=== PATIENT | male | born 1970 | race Caucasian/White ===

== ENCOUNTER 2016-09-19 22:52 | Emergency (ER) | payer MEDICAID, MEDICARE ==
[2016-09-19] MEDS ORDERED: HYDROmorphone* 2 MG/ML 1 ML SYR ONE ×2 (23:01→23:26)
[2016-09-19] MEDS ORDERED: NS 0.9% 1000 ML* 1,000 ML IV ONE (23:08)
[2016-09-19] MEDS ORDERED: Ondansetron INJ* 2 MG/ML VIAL IV ONE (23:08)
[2016-09-19] MEDS ORDERED: HYDROmorphone* 2 MG/ML 1 ML SYR IV ONE (23:08)
[2016-09-19] MEDS ORDERED: Tetan/Diph/Pertus SYR(Tdap)* 0.5 ML SYR(BOOSTRIX) use SYR IM ONE (23:17)
[2016-09-19] MEDS ORDERED: fentaNYL* 50 MCG/ML 2 ML VIAL (100 MCG VIAL) ONE (23:22)
[2016-09-19] MEDS ORDERED: HYDROmorphone* 2 MG/ML 1 ML SYR IV SLOW PU ONE ×2 (23:39→23:54)
[2016-09-19] MEDS ORDERED: fentaNYL* 50 MCG/ML 2 ML VIAL (100 MCG VIAL) IV SLOW PU ONE (23:39)
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
[2016-09-19 23:58] LABS: Hematocrit 44 % (42-52); Hemoglobin 14.9 g/dl (14.0-18.0); Mean Corpuscular HGB Conc 34 g/dl (31-36); Mean Corpuscular Hemoglobin 32 pg (27-31); Mean Corpuscular Volume 95 fL (80-94); Mean Platelet Volume 7 um3 (7.4-10.4); Red Blood Count 4.63 10^6/ul (4.0-5.4); Red Cell Distribution Width 13 % (10.5-15); White Blood Count 13.5 10^3/ul (3.5-10.8)
[2016-09-20 00:02] VITALS: BP 134/63
[2016-09-20 00:11] LABS: Albumin 4.1 g/dL (3.2-5.2); BUN/Creatinine Ratio 13.6 (8-20); Calcium 8.6 mg/dL (8.6-10.3); EGFR Non-African American 77.7 (>60); Globulin 2.3 g/dL (2-4); Potassium 3.7 mmol/L (3.5-5.0); Total Bilirubin 0.5 mg/dL (0.2-1.0); Total Protein 6.4 g/dL (6.4-8.9)
== END 2016-09-20 00:13 | disposition short-term general hospital (02) ==
LOC: ED 22:52
DX: T20.27XA Burn of second degree of neck, initial encounter (principal); T21.21XA Burn of second degree of chest wall, initial encounter; T20.29XA Burn of second degree of multiple sites of head, face, and neck, initial encounter; T24.202A Burn of second degree of unspecified site of left lower limb, except ankle and foot, initial encounter; T22.20XA Burn of second degree of shoulder and upper limb, except wrist and hand, unspecified site, initial encounter; T31.11 Burns involving 10-19% of body surface with 10-19% third degree burns; X08.8XXA Exposure to other specified smoke, fire and flames, initial encounter; Y93.9 Activity, unspecified; Y92.9 Unspecified place or not applicable; Y99.9 Unspecified external cause status
CPT/HCPCS: 36415; 80053; 85025; 85610; 85730; 90715; 96374; 96375; 99284; J1170; J2405; J3010

== ENCOUNTER 2017-05-31 00:30 | Emergency (ER) | payer MEDICARE, MEDICAID ==
[2017-05-31] MEDS ORDERED: Ketorolac INJ* 60 MG/2 ML VIAL IM ONE (01:37)
[2017-05-31 08:04] VITALS: BP 137/69
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
== END 2017-05-31 03:42 | disposition home or self-care (01) ==
LOC: ED 00:30
DX: M54.5 Low back pain (principal); G89.29 Other chronic pain; M54.9 Dorsalgia, unspecified
CPT/HCPCS: 96372; 99281; J1885

== ENCOUNTER 2017-11-07 09:59 | Emergency (ER) | payer MEDICARE, MEDICAID ==
[2017-11-07 10:10] VITALS: BP 126/70
[2017-11-07] MEDS ORDERED: HYDROcodone/ACETAMIN 5-325 MG* 1 TAB PO ONE (10:25)
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
--- NOTE | 2017-11-07 10:41 | RAD ---
INDICATION: Dislocation left third digit COMPARISON: None TECHNIQUE: AP, lateral, and oblique views were obtained. FINDINGS: There is dislocation at the level the proximal interphalangeal joint of the third digit. There is no definitive fracture but this can be reassessed post reduction. There is soft tissue swelling with deformity. IMPRESSION: DISLOCATION AT THE PIP JOINT
--- NOTE | 2017-11-07 11:06 | RAD ---
INDICATION: Third digit PIP dislocation left hand -post reduction COMPARISON: Left hand same date TECHNIQUE: AP, lateral, and oblique views were obtained. FINDINGS: There is satisfactory reduction. There is no underlying fracture. IMPRESSION: SATISFACTORY REDUCTION.
== END 2017-11-07 11:12 | disposition home or self-care (01) ==
LOC: UCEAST 09:59
DX: S63.273A Dislocation of unspecified interphalangeal joint of left middle finger, initial encounter (principal); F17.210 Nicotine dependence, cigarettes, uncomplicated; W19.XXXA Unspecified fall, initial encounter; Y92.008 Other place in unspecified non-institutional (private) residence as the place of occurrence of the external cause
CPT/HCPCS: 73140; 99212; G0463